=== PATIENT | female | born 1960 | race Caucasian/White ===

== ENCOUNTER 2018-04-06 23:53 | Inpatient (IN) | payer SELFPAY ==
[~2018-04-06] VITALS: Ht 165.1 cm; Wt 65.2 kg
[2018-04-07 01:52] VITALS: BP 143/88; PULSE 96; RESP 17; TEMP 98; O2SAT 96
[2018-04-07] MEDS ORDERED: ALUMINUM/MAGNESIUM/SIMETH 30 ML CUP PO PRN (02:00)
[2018-04-07] MEDS ORDERED: diphenhydrAMINE HCL 50 MG CAP - HS PRN PO (02:00)
[2018-04-07] MEDS ORDERED: MAGNESIUM HYDROXIDE SUSP 30 ML CUP PO PRN (02:00)
[2018-04-07] MEDS ORDERED: ACETAMINOPHEN 325 MG TAB PO PRN (02:00)
[2018-04-07] MEDS ORDERED: diphenhydrAMINE HCL 50 MG/ML VIAL - HS PRN IM (02:00)
[2018-04-07] MEDS ORDERED: hydrOXYzine HCL 50 MG TAB PO PRN (02:00)
[2018-04-07] MEDS: NICOTINE 21 MG/24 HR PATCH T-DERMAL SCH (09:00)
[2018-04-07 09:45] LABS: CHOLESTEROL 209 MG/DL (120-200); TRIGLYCERIDES 112 MG/DL (42-150)
[2018-04-07 09:48] LABS: CHOLESTEROL/ HDL RATIO 3.45 RATIO; HDL CHOLESTEROL 60.5 MG/DL (40.0-60.0); LDL CHOLESTEROL 126 MG/DL (0-99)
[2018-04-07] MEDS ORDERED: FLUD.1 PO (09:58)
[2018-04-07] MEDS ORDERED: METO25TA3 PO (09:58)
--- NOTE | 2018-04-07 10:55 | HHI.HP ---
Provisional Diagnosis Admission Date Apr 07, 2018 at 01:30 [place]. 1. Adjustment disorder, unspecified Rule out anxiety disorder Rule out psychotic disorder Rule out delirium due to UTI [place]. 1. Rule out some obsessive-compulsive personality traits Certification of Person's Competence To Provide Express and Informed Consent I have personally examined Yojana Enriquez , a person being served at [facility] on, Apr 07, 2018 10:55. Express and informed consent means consent voluntarily given in writing, by a competent person, after sufficient explanation and disclosure of the subject matter involved to enable the person to make a knowing and willful decision without any element of force, fraud, deceit, duress, or other form of constraint or coercion. This person is 18 years of age or older, is not now known to be incompetent to consent to treatment with a guardian advocate, and does not have a health care surrogate or proxy currently making medical treatment decisions. I have found this person to be one of the following: [] Competent to provide express and informed consent, as defined above, for voluntary admission to this facility and is competent to provide express and informed consent for treatment. He/she has the consistent capacity to make well reasoned, willful, and knowing decisions concerning his or her medical or mental health treatment. The person fully and consistently understands the purpose of the admission for examination/placement and is fully capable of personally exercising all rights assured under [place] [] Incompetent to provide express and informed consent to voluntary admission, and this is incompetent to provide express and informed consent to treatment. The person must be transferred to involuntary status and a petition for a guardian advocate filed with the Circuit Court. [x] Refusing to provide express and informed consent to voluntary admission but is competent to provide express and informed consent for treatment. The person must be discharged or transferred to involuntary status. Form shall be completed within 24 hours of a person's arrival at the receiving facility and filed in the clinical record of each person: 1. Admitted on a voluntary basis 2. Permitted to provide express and informed consent to his/her own treatment 3. Allowed to transfer from involuntary to voluntary status 4. Prior to permitting a person to consent to his or her own treatment after having been previously found incompetent to consent to treatment. History of Present Illness Capacity: Has Capacity (To consent for medication/treatment) Psych Chief Complaint: Lopez Act HPI Ms. Enriquez is a 57-year-old female with no reported past psychiatric history sent in transfer from [facility] under a Lopez act. Documentation from outside hospital reviewed. Patient was apparently brought into the ED I her sister and [id number]. Family informed ED provider that the patient "has been asking them for help and talking about an 'Army being after her'. Psychiatric screener at outside hospital noted that the patient believed that she was being followed or watched after trying to date someone online. Reviewing our electronic medical record, it appears this is patient's first visit to [facility]. Patient seen and examined with nurse. Chart reviewed. Case discussed with nursing staff. On my examination today, patient presents as somewhat interpersonally odd. She is somewhat guarded. She exhibits some suspiciousness , for example regarding medications. She asks that she be allowed to inspect any medication that she is given. When I ask her about the allegations listed in the transfer documentation, she does admit that she was concerned about a possible stalker from the dating website, but she denies being concerned about this ongoing. She reports that families allegation about an Army being after her was simply misinterpreted. Mood is fair, and I can elicit no depressive or hypomanic/manic symptoms. She denies any suicidal or homicidal ideation, intent or plan. She denies any audiovisual hallucinations. Denies any command auditory hallucinations. I can elicit no alla paranoia, no ideas of reference , no feelings of thought manipulation or other clear delusional material, although she does exhibit some suspiciousness as noted above. She denies any obsessions or compulsions. She does exhibit some obsessive-compulsive personality traits. Remainder of the psychiatric ROS is negative. No acute physical complaints. Past psychiatric history: Patient denies a history of psychiatric diagnosis. She denies a history of inpatient or outpatient psychiatric treatment. She denies a history of suicide attempts. Family history: Patient denies any family history of mental illness, substance use disorder or suicide. Chemical dependency history: Patient denies any abuse of drugs or alcohol. Social history: The patient has been staying with her sister and nephew. She moved to [place] from [place] about 2-1/2 years ago. She is with no children. She has an associates degree in business but is presently unemployed. She denies any history. Denies any legal history. Denies any access to guns or firearms. She is interested in the Jehovah witness pushpa. She denies any history of physical, verbal or sexual abuse. Review of Systems Except as stated in HPI: all other systems reviewed are Neg Past Family Social History Coded Allergies: acetaminophen (Verified Allergy, Severe, 04/07/18) PER PATIENT oxycodone (Verified Allergy, Severe, 04/07/18) PER PATIENT Past Medical History Patient reports a history of POTS and neurocardiogenic syncope. Reported Medications Fludrocortisone (Fludrocortisone) 0.1 Mg Tab, 0.1 MG PO DAILY, #30 TAB 0 Refills 04/07/18 Metoprolol Tartrate (Metoprolol Tartrate) 25 Mg Tab, 25 MG PO DAILY, #30 TAB 0 Refills 04/07/18 Current Medications Medications (Trade) Dose Ordered Sig/Narinder Route Start Time Stop Time Status Last Admin (Atarax) 50 mg Q6H PRN PO 04/07/18 02:00 (Benadryl) 50 mg HS PRN PO 04/07/18 02:00 (Benadryl Inj) 50 mg HS PRN IM 04/07/18 02:00 (Tylenol) 650 mg Q4H PRN PO 04/07/18 02:00 (Milk Of Magnesia Liq) 30 ml DAILY PRN PO 04/07/18 02:00 (Mag-Al Plus Susp Liq) 30 ml Q6H PRN PO 04/07/18 02:00 (Habitrol 21 Mg Patch.24 Hr) 1 patch DAILY T-DERMAL 04/07/18 09:00 Miscellaneous Information 1 HS T-DERMAL 04/07/18 21:00 Patient's Strengths (min. 2) Attending to basic needs. Verbally fluent. Physical Exam Physical exam completed by ED provider at outside hospital. On my examination today, the patient appears to be in no acute physical distress. No motor abnormalities noted. Labs and vital signs reviewed: Vital Signs Vital Signs Date Time Temp Pulse Resp B/P (MAP) Pulse Ox O2 Delivery O2 Flow Rate FiO2 04/07/18 01:52 98.0 96 17 143/88 (106) 96 Lab Results Test 04/07/18 08:49 Triglycerides Level 112 MG/DL Cholesterol Level 209 MG/DL LDL Cholesterol 126 MG/DL HDL Cholesterol 60.5 MG/DL Cholesterol/HDL Ratio 3.45 [facility]ATIO Laboratories from outside hospital reviewed: CBC unremarkable. CMP unremarkable. TSH within normal limits. Tylenol, salicylate and alcohol level all undetectable. Urinalysis reveals 8 white blood cells and 2+ leukocyte esterase. Urine toxicology negative. Chest x-ray read as no acute disease. Head CT reveals atrophic changes but no acute process. Mental Status Examination Appearance: Appropriate Consciousness: Alert Orientation: x4 Motor Activity: Normal gait Speech: Unremarkable Language: Adequate Fund of Knowledge: Adequate Attention and Concentration: Adequate Memory: Unremarkable (Grossly intact on clinical exam) Mood: Other (Fair) Affect: Blunt Thought Process & Associations: Intact Thought Content: Preoccupations (Mild) Hallucination Type: None Delusion Type: Other (Guardedness/suspiciousness but no alla paranoia) Suicidal Ideation: No (Unclear whether patient is reliable to contract for safety) Suicidal Plan: No Suicidal Intention: No Homicidal Ideation: No Homicidal Plan: No Homicidal Intention: No Mental Status Exam Remarks Insight and judgment are unclear Assessment & Plan Problem List: (1) Adjustment disorder, unspecified ICD Codes: F43.20 - Adjustment disorder, unspecified Assessment & Plan 57-year-old female with psychiatric history as detailed above who presents in transfer from outside hospital under Lopez act. On my examination today, the patient essentially denies the allegations detailed in the outside hospital providers' notes. She does present as somewhat interpersonally odd and guarded. I do note that her urinalysis at outside hospital was not inconsistent with UTI, and so some degree of delirium is possible. It is also possible that she suffers from an anxiety disorder, an obsessive-compulsive personality style or perhaps a guru wilson psychotic illness, although this last possibility is lower on my differential at present. There is no obvious evidence of neurocognitive disorder, such as dementia, although we will need to perform bedside cognitive testing to further assess this. Further collateral information will also be helpful in clarifying patient's psychiatric issues. I will plan to admit the patient to the inpatient unit for observation. Admit inpatient. Patient is declining to consent for voluntary admission. I will continue to observe under the Lopez act for now. I have checked with the legal compliance officer and a Lopez act will on 04/09 at 21:13. Patient retains capacity to consent for psychotropic medications. She does not believe that she is in need of psychiatric medications at present. I will continue the patient's metoprolol and Florinef. Check a UA with culture if indicated and initiate empiric Macrobid treatment after UA has been obtained. Fall precautions. Vitals every shift. Counselor to see and obtain collateral information. Bedside cognitive screening. Disposition planning. Estimated length of stay: Pending outcome of further observation but greater than 2 days. Discharge Planning Pending outcome of observation Request HC Surrog/Guard Advoc?: No (Not at this time) Problem Qualifiers (1) Adjustment disorder, unspecified: Qualified Codes: F43.20 - Adjustment disorder, unspecified Trace King MD Apr 07, 2018 10:55
[2018-04-07] MEDS: METOPROLOL TARTRATE 25 MG TAB PO SCH (12:34)
[2018-04-07] MEDS: FLUDROCORTISONE ACETATE 0.1 MG TAB PO SCH (12:35)
[2018-04-07 16:55] LABS: BACTERIA, URINE MANY /hpf; BILIRUBIN, URINE NEG (NEG); BLOOD, URINE NEG (NEG); GLUCOSE,URINE NEG (NEG); KETONE, URINE NEG (NEG); MUCUS URINE FEW /lpf (OCC); NITRITE,URINE NEG (NEG); SQUAMOUS EPITHELIAL CELL URINE 1 /hpf (0-5); URINE COLOR YELLOW (YELLW/STRAW); URINE LEUKOCYTE ESTERASE MOD (NEG)
[2018-04-07 17:52] VITALS: BP 136/79; PULSE 75; RESP 16; TEMP 97.7; O2SAT 99
[2018-04-07] MEDS: NITROFURANTOIN MONOHYD MACROCR 100 MG CAP PO SCH (18:00)
[2018-04-07 19:23] LABS: HEMOGLOBIN A1C 5.5 % (4.3-6.0)
[2018-04-07] MEDS: REMOVE OLD NICOTINE PATCH T-DERMAL SCH (21:00)
[2018-04-08 06:19] VITALS: BP 131/71; PULSE 88; RESP 20; TEMP 98.2; O2SAT 97
[2018-04-08] MEDS: NICOTINE 21 MG/24 HR PATCH T-DERMAL SCH (09:00)
[2018-04-08] MEDS: NITROFURANTOIN MONOHYD MACROCR 100 MG CAP PO SCH ×2 (09:14→17:23)
[2018-04-08] MEDS: FLUDROCORTISONE ACETATE 0.1 MG TAB PO SCH (09:14)
[2018-04-08] MEDS: METOPROLOL TARTRATE 25 MG TAB PO SCH (09:14)
--- NOTE | 2018-04-08 09:34 | EKG ---
Date Performed: 04/07/2018 Time Performed: 13:34:44 PTAGE: 57 years EKG: Sinus rhythm WITH SHORT DE INTERVAL BORDERLINE ECG NO PREVIOUS TRACING DOCTOR: Power Martinez Interpretating Date/Time 04/08/2018 09:32:29
--- NOTE | 2018-04-08 14:38 | HHI.PYPN ---
Subjective Chief Complaint: Lopez Act Remarks Patient seen and examined with nurse. Chart reviewed. Case discussed with nursing staff. Per nursing, patient stands outside of the nursing station window and touches the window repeatedly. She is reportedly suspicious regarding medications. Case discussed with counselor who administered MOCA with a score of 25 out of 30. On my examination today, the patient presents as guarded. She does exhibit some thought blocking. She denies any suicidal or homicidal ideation. No mood symptoms. She is defensive when confronted with evidence of psychiatric symptoms and insists that she does not have any mental illness. She declines all psychotropic medications. No physical complaints. Review of Systems ROS Limitations: Psychotic, Poor Historian Except as stated in HPI: all other systems reviewed are Neg Mental Status Examination Appearance: Appropriate Consciousness: Alert Orientation: x4 Motor Activity: Normal gait, Other (No motor abnormalities noted) Speech: Unremarkable Language: Adequate Fund of Knowledge: Adequate Attention and Concentration: Adequate Memory: Unremarkable (Grossly intact on clinical exam) Mood: Other (Fair) Affect: Blunt (Tending towards flat) Thought Process & Associations: Intact Thought Content: Thought blocking Hallucination Type: None Delusion Type: Other (Guarded) Suicidal Ideation: No Suicidal Plan: No Suicidal Intention: No Homicidal Ideation: No Homicidal Plan: No Homicidal Intention: No Insight: Poor Judgment: Poor Results Labs Test 04/07/18 16:30 Urine Color YELLOW Urine Turbidity HAZY Urine pH 6.0 Urine Specific [place] 1.012 Urine Protein NEG mg/dL Urine Glucose (UA) NEG mg/dL Urine Ketones NEG mg/dL Urine Occult Blood NEG Urine Nitrite NEG Urine Bilirubin NEG Urine Urobilinogen LESS THAN 2.0 MG/DL Urine Leukocyte Esterase MOD Urine RBC LESS THAN 1 /hpf Urine WBC 28 /hpf Urine Squamous Epithelial Cells 1 /hpf Urine Bacteria MANY /hpf Urine Mucus FEW /lpf Microscopic Urinalysis Comment CULTURE INDICATED Date/Time Source Procedure Growth Status 04/07/18 16:30 Urine Clean Catch Urine Culture Pending Received Labs reviewed. Urine culture growing out gram-negative rods. Vitals/IOs Vital Signs Date Time Temp Pulse Resp B/P (MAP) Pulse Ox O2 Delivery O2 Flow Rate FiO2 04/08/18 06:19 98.2 88 20 131/71 (91) 97 Assessment & Plan Problem List: (1) Other psychotic disorder not due to a substance or known physiological condition ICD Codes: F28 - Other psychotic disorder not due to a substance or known physiological condition Assessment & Plan With the benefit of further observation, patient's presentation does indeed seem more consistent with some sort of psychotic illness. Patient is refusing all psychotropic medications. Unclear whether patient meets criteria for involuntary psychiatric hospitalization/healthcare surrogate/GA as likely would be necessary to initiate some sort of antipsychotic therapy. I will pursue more of psychosis workup including B12, thiamine/folate, RPR, HIV, sed rate, AVI. Head imaging was performed at outside hospital. Continue to monitor on inpatient unit. Continue other medications and care as ordered. Justification for Cont. Inpt. Risk for decompensation in less restrictive setting. Discharge Planning Monitor through expiration of Lopez act tomorrow. Request HC Surrog/Guard Advoc?: No (Not at this time) Trace King MD Apr 08, 2018 14:38
[2018-04-08 17:58] VITALS: BP 114/61; PULSE 71; RESP 20; TEMP 98.6; O2SAT 100
[2018-04-08] MEDS: REMOVE OLD NICOTINE PATCH T-DERMAL SCH (19:34)
[2018-04-08 21:54] LABS: BICARBONATE 27.7 MEQ/L (21.0-32.0); CALCIUM 9.4 MG/DL (8.5-10.1); CREATININE 0.65 MG/DL (0.50-1.00)
[2018-04-08 21:58] LABS: CHOLESTEROL/ HDL RATIO 3.74 RATIO; HDL CHOLESTEROL 58.5 MG/DL (40.0-60.0)
[2018-04-08 22:23] LABS: FOLATE GREATER THAN 20.0 NG/ML (3.1-17.5)
[2018-04-09 06:27] VITALS: BP 115/65; PULSE 78; RESP 16; TEMP 98.1; O2SAT 98
[2018-04-09] MEDS: NICOTINE 21 MG/24 HR PATCH T-DERMAL SCH (09:00)
[2018-04-09] MEDS: METOPROLOL TARTRATE 25 MG TAB PO SCH (09:35)
[2018-04-09] MEDS: NITROFURANTOIN MONOHYD MACROCR 100 MG CAP PO SCH (09:35)
[2018-04-09] MEDS: FLUDROCORTISONE ACETATE 0.1 MG TAB PO SCH (09:35)
[2018-04-09] MEDS ORDERED: NITR100C4 PO (11:14)
--- NOTE | 2018-04-09 11:14 | HHI.DS ---
Psychiatry Discharge Summary Inpatient Psychiatric care?: Yes Advance Directive: No Reason Not Provided: NOT INTERESTED Mental Health AdvanceDirective: No Health Care Proxy: No Admission Admission Date Apr 07, 2018 at 01:30 Admission Diagnosis: (1) Adjustment disorder, unspecified ICD Code: F43.20 - Adjustment disorder, unspecified Brief History Ms. Enriquez is a 57-year-old female with no reported past psychiatric history sent in transfer from [facility] under a Lopez act. Documentation from outside hospital reviewed. Patient was apparently brought into the ED I her sister and [id number]. Family informed ED provider that the patient "has been asking them for help and talking about an 'Army being after her'. Psychiatric screener at outside hospital noted that the patient believed that she was being followed or watched after trying to date someone online. Reviewing our electronic medical record, it appears this is patient's first visit to [facility]. Patient seen and examined with nurse. Chart reviewed. Case discussed with nursing staff. On my examination today, patient presents as somewhat interpersonally odd. She is somewhat guarded. She exhibits some suspiciousness , for example regarding medications. She asks that she be allowed to inspect any medication that she is given. When I ask her about the allegations listed in the transfer documentation, she does admit that she was concerned about a possible stalker from the dating website, but she denies being concerned about this ongoing. She reports that families allegation about an Army being after her was simply misinterpreted. Mood is fair, and I can elicit no depressive or hypomanic/manic symptoms. She denies any suicidal or homicidal ideation, intent or plan. She denies any audiovisual hallucinations. Denies any command auditory hallucinations. I can elicit no alla paranoia, no ideas of reference , no feelings of thought manipulation or other clear delusional material, although she does exhibit some suspiciousness as noted above. She denies any obsessions or compulsions. She does exhibit some obsessive-compulsive personality traits. Remainder of the psychiatric ROS is negative. No acute physical complaints. Past psychiatric history: Patient denies a history of psychiatric diagnosis. She denies a history of inpatient or outpatient psychiatric treatment. She denies a history of suicide attempts. Family history: Patient denies any family history of mental illness, substance use disorder or suicide. Chemical dependency history: Patient denies any abuse of drugs or alcohol. Social history: The patient has been staying with her sister and nephew. She moved to [place] from [place] about 2-1/2 years ago. She is with no children. She has an associates degree in business but is presently unemployed. She denies any history. Denies any legal history. Denies any access to guns or firearms. She is interested in the Jehovah witness pushpa. She denies any history of physical, verbal or sexual abuse. Tobacco Use In Past 30 Days: No Tobacco Past 30 Days Alcohol Use: Never Hospital Course Patient was admitted to a locked, inpatient psychiatric unit. Appropriate precautions were in place throughout patient's hospital stay. Patient was seen and examined on the unit by psychiatry and also visited by counselor. Patient declined any psychotropic medications. There was no evidence of any suicidality or homicidality on the inpatient unit. There was no evidence of self-care deficit. With the benefit of further observation, patient is noted to be somewhat guarded and suspicious in interactions with others. The same family that brought the patient to the outside hospital ED to have her Lopez Acted presented to the unit yesterday demanding her discharge. Patient was observed as allowed under the Lopez Act, which will this evening. On the day of discharge: Patient seen and examined with nurse. Chart reviewed. Case discussed with nursing staff. No behavioral issues noted overnight. On my examination today, the patient denies any suicidal or homicidal ideation, intent or plan and contracts for safety. I can elicit no depressive or hypomanic/manic symptoms, although her affect is blunted, tending towards flat. Her thought process is a little bit more organized today, and all that we have done is treat her urinary tract infection, and so I do wonder about a component of delirium in the present case, although she is not overtly confused. Counselor did perform bedside cognitive testing with the patient yesterday and it was at worst mildly decreased. She denies any audiovisual hallucinations. She remains a little bit guarded, although less so today here again, and I can elicit no alla delusional material. She continues to decline any psychotropic medications. She is agreeable to an outpatient psychiatric referral. She has no physical complaints. There is no evidence of imminent risk of harm to self or others or self care deficit to substantiate a petition for involuntary psychiatric hospitalization in this patient at this time. I do believe that she would benefit from further observation on the unit. However, the patient is insisting on discharge today. I will discharge her AGAINST MEDICAL ADVICE. Psychiatric follow-up as arranged by counselor. Patient is also to follow up with primary care. I have reminded the patient that there are labs outstanding at time of discharge, and she must follow-up on these by calling the laboratory for results. I have counseled the patient regarding warning signs for need to return to the psychiatric emergency room as part of a general safety plan. Results Blood Pressure 115 / 65 Vital Signs Date Time Temp Pulse Resp B/P (MAP) Pulse Ox O2 Delivery O2 Flow Rate FiO2 04/09/18 06:27 98.1 78 16 115/65 (82) 98 Laboratory Tests Test 04/07/18 08:49 04/07/18 16:30 04/08/18 21:12 04/09/18 07:15 Cholesterol Level 209 MG/DL (120-200) 219 MG/DL (120-200) LDL Cholesterol 126 MG/DL (0-99) 133 MG/DL (0-99) HDL Cholesterol 60.5 MG/DL (40.0-60.0) Urine Turbidity HAZY (CLEAR) Urine Leukocyte Esterase MOD (NEG) Urine WBC 28 /hpf (0-5) Urine Bacteria MANY /hpf (NONE) Urine Mucus FEW /lpf (OCC) Folate GREATER THAN 20.0 NG/ML Laboratory Results Test 04/07/18 08:49 04/08/18 21:12 Hemoglobin A1c 5.5 % (4.3-6.0) Cholesterol Level 219 MG/DL (120-200) HDL Cholesterol 58.5 MG/DL (40.0-60.0) LDL Cholesterol 133 MG/DL (0-99) Triglycerides Level 138 MG/DL (42-150) Summary of Procedures None done Imaging None done Pending results at discharge: No Medications # of Antipsychotic meds at D/C: 0 Approp Antipsych med options 1 - Minimum of three failed multiple trials of monotherapy. 2 - Documented plan to taper to monotherapy due to previous use of multiple meds OR cross-taper in progress at D/C. 3 - Documentation of augmentation of Clozapine. 4 - Justification other than those listed in allowable values 1-3, document here : Discharge Discharge Date: Apr 09, 2018 Discharge Diagnosis: (1) Other psychotic disorder not due to a substance or known physiological condition Diagnosis: Principal ICD Code: F28 - Other psychotic disorder not due to a substance or known physiological condition Pt Condition on Discharge: Guarded (because AMA discharge) Discharge Disposition: Discharge Home Discharge Instructions Diet Instructions: As Tolerated, No Restrictions Activities you can perform: Weight Bearing as Hoda Scheduled Appointment: Ki Dickson [facility] Appointment Date: Apr 13, 2018 Appointment Time: 7:30 am New Medications: Nitrofurantoin Monohydrate Macrocrystals (Nitrofurantoin Monohydrate Macrocrystals) 100 Mg Cap 100 MG PO BIDPC for UTI for 4 Days, CAP 0 Refills Continued Medications: Fludrocortisone (Fludrocortisone) 0.1 Mg Tab 0.1 MG PO DAILY, #30 TAB 0 Refills Metoprolol Tartrate (Metoprolol Tartrate) 25 Mg Tab 25 MG PO DAILY, #30 TAB 0 Refills Discharge Time <= 30 minutes Mental Status Examination Appearance: Appropriate Consciousness: Alert Orientation: x4 Motor Activity: Normal gait, Other (No abnormal motor movements noted) Speech: Unremarkable Language: Adequate Fund of Knowledge: Adequate Attention and Concentration: Adequate Memory: Unremarkable (Grossly intact on clinical exam) Mood: Appropriate Affect: Blunt (Tending towards flat) Thought Process & Associations: Intact, Linear Thought Content: Appropriate Hallucination Type: None Delusion Type: Other (Remain somewhat guarded but no alla paranoia) Suicidal Ideation: No Suicidal Plan: No Suicidal Intention: No Homicidal Ideation: No Homicidal Plan: No Homicidal Intention: No Insight: Poor Judgment: Poor Discharge/Advance Care Plan Health Problems: (1) Other psychotic disorder not due to a substance or known physiological condition Goals to promote your health * To prevent worsening of your condition and complications * To maintain your health at the optimal level Directions to meet your goals Take your medications as prescribed Follow your dietary instruction Follow activity as directed Keep your appointments as scheduled Take your immunizations and boosters as scheduled If your symptoms worsen call your PCP, if no PCP go to Urgent Care Center or Emergency Room For 19/05 questions related to your inpatient stay or results of tests pending at discharge, please contact Dr. Trace Kign at Smoking is Dangerous to Your Health. Avoid second hand smoking Problem Qualifiers (1) Adjustment disorder, unspecified: Qualified Codes: F43.20 - Adjustment disorder, unspecified Trace King MD Apr 09, 2018 11:14
== END 2018-04-09 12:15 | disposition left against medical advice (07) | DRG 885 ==
LOC: H260 04-07 01:30
PROVIDERS: ADMIT Psychiatry & Neurology Psychiatry; ATTEND Psychiatry & Neurology Psychiatry
DX: F28 Other psychotic disorder not due to a substance or known physiological condition (principal); N39.0 Urinary tract infection, site not specified; F43.20 Adjustment disorder, unspecified; Z88.5 Allergy status to narcotic agent; Z88.6 Allergy status to analgesic agent
CPT/HCPCS: 80048; 80061; 81001; 82140; 82607; 82746; 83036; 84425; 85652; 86038; 86592; 87077; 87086; 87186; 87389; 93005; G0475